=== PATIENT | female | born 1990 | race African-American/Black ===

== ENCOUNTER 2024-07-15 11:31 | Emergency (ER) | payer OTHER ==
[2024-07-15 11:41] VITALS: BP 119/75; PULSE 66; RESP 20; TEMP 98.5; BMI 27.3
[2024-07-15] MEDS ORDERED: FAMOTIDINE 10 MG TABLET PO ONE (12:30)
[2024-07-15] MEDS ORDERED: FAMOTIDINE 20 MG TABLET ONE (12:38)
[2024-07-15] MEDS ORDERED: MAG HYDROX/AL HYDROX/SIMETH 30 ML UNIT-DOSE CUP ONE (12:38)
[2024-07-15] MEDS ORDERED: ACETAMINOPHEN INJECTION 100 ML ONE (12:44)
[2024-07-15] MEDS ORDERED: SUCRALFATE 1 GM TABLET (FP) ONE (12:44)
[2024-07-15] MEDS: MAG HYDROX/AL HYDROX/SIMETH 30 ML UNIT-DOSE CUP PO ONE (13:12)
[2024-07-15] MEDS: ACETAMINOPHEN 1000 MG/100 ML BAG IVPB ONE (13:12)
[2024-07-15 13:25] LABS: BASO % 0.8 % (0-2.0); EOS % 1.9 % (0-4.5); HEMATOCRIT 37.8 % (32.4-45.2); HEMOGLOBIN 12.3 GM/dL (10.7-15.3); LYMPH % 46.9 % (8-40); MCHC 32.4 g/dl (32.0-36.0); MEAN CELL VOLUME 86.5 fl (80-96); MEAN PLT VOLUME 8.3 fl (7.5-11.1); MONO % 5.7 % (3.8-10.2); NEUT % 44.7 % (42.8-82.8); PLATELET COUNT 276 10^3/uL (134-434); RBC 4.38 M/mm3 (3.60-5.2); RDW 14.2 % (11.6-15.6); WHITE BLOOD COUNT 4.9 K/mm3 (4.0-10.0)
[2024-07-15 13:33] LABS: EPI CELLS 3 /uL (0-25.1); HCG,QUALITATIVE URINE Negative; HYALINE CASTS 0 /uL (0-3.1); URINE APPEARANCE CLEAR; URINE BACTERIA 188 /uL (0-1359); URINE BILIRUBIN NEGATIVE (NEGATIVE); URINE COLOR YELLOW; URINE GLUCOSE (UA) NEGATIVE (NEGATIVE); URINE KETONE NEGATIVE (NEGATIVE); URINE LEUK ESTERASE NEGATIVE (NEGATIVE); URINE NITRITE NEGATIVE (NEGATIVE); URINE PROTEIN NEGATIVE (NEGATIVE); URINE RBC 80 /uL (0-23.9); URINE UROBILINOGEN 0.2 mg/dL (0.2-1.0); URINE WBC 1 /uL (0-25.8)
[2024-07-15] MEDS: SUCRALFATE 1 GM TABLET (FP) PO ONE (13:42)
[2024-07-15 13:47] LABS: CALCIUM 8.9 mg/dL (8.5-10.1)
[2024-07-15 13:48] LABS: ALBUMIN 3.7 g/dl (3.4-5.0); BLOOD UREA NITROGEN 8.8 mg/dL (7-18)
[2024-07-15 13:51] LABS: CREATININE 0.7 mg/dL (0.55-1.3)
[2024-07-15 13:52] LABS: BILIRUBIN,TOTAL 0.4 mg/dL (0.2-1); TOT PROT 7.5 g/dl (6.4-8.2)
[2024-07-15 14:44] LABS: HIV INTERPRETATION NEGATIVE (NEGATIVE)
== END 2024-07-15 15:50 | disposition home or self-care (01) ==
LOC: JER 11:31
PROC: 3E033NZ Introduction of Analgesics, Hypnotics, Sedatives into Peripheral Vein, Percutaneous Approach (ICD-10-PCS; principal; 2024-07-15)
DX: R10.13 Epigastric pain (principal); R10.32 Left lower quadrant pain; R10.33 Periumbilical pain
CPT/HCPCS: 36415; 71046-TC-FY; 80053; 81003; 83690; 84484; 84703; 85025; 86803; 87086; 87389; 93005; 93010; 99285-25; J0131